=== PATIENT | female | born 1975 | race African-American/Black ===

== ENCOUNTER 2023-05-06 11:57 | Emergency (ER) | payer MEDICAID ==
[~2023-05-06] VITALS: Ht 152.4 cm; Wt 66.7 kg
[2023-05-06 11:57] VITALS: BP_SYST 129; PULSE 89; RESP 18; TEMP 97.5; O2SAT 97
[2023-05-06 15:09] LABS: BASOPHILS % (AUTO) 0.3 % (0.0-2.0); EOSINOPHILS # (AUTO) 0.1 K/uL (0.0-0.4); HEMATOCRIT 36.5 % (36-48); HEMOGLOBIN 11.7 g/dL (12.0-16.0); LYMPHOCYTES % (AUTO) 38.8 % (20.5-51.5); MEAN CORPUSCULAR HEMOGLOBIN 29 pg (27-31); MEAN CORPUSCULAR HGB CONC 32 % (32-36); MEAN CORPUSCULAR VOLUME 89 fL (79.0-98.0); MONOCYTES # (AUTO) 0.4 K/uL (0.0-1.0); MONOCYTES % (AUTO) 5.8 % (1.7-9.3); NEUTROPHILS # (AUTO) 4.2 K/uL (1.8-7.7); NEUTROPHILS % (AUTO) 54.1 % (40.0-70.0); PLATELET COUNT (AUTO) 314 K/uL (130-430); RED BLOOD CELL COUNT(AUTO) 4.12 MIL/uL (4.2-6.2); RED CELL DISTRIBUTION WIDTH 13.6 % (9.0-15.0); WHITE BLOOD COUNT (AUTO) 7.7 K/uL (4.8-10.8)
[2023-05-06 15:37] VITALS: TEMP 97.5
[2023-05-06 16:08] LABS: ALANINE AMINOTRANSFERASE 23 U/L (12-78); ALBUMIN 3.9 g/dL (3.4-4.8); ANION GAP 7 (5-15); ASPARTATE AMINOTRANSFERASE 20 U/L (10-37); CALCIUM 9.5 mg/dL (8.4-11.0); CARBON DIOXIDE 30 mmol/L (23-29); CHLORIDE 103 mmol/L (98-107); CREATININE 0.86 mg/dL (0.55-1.30); GFR AFRICAN AMERICAN 90 mL/min (>90); GLUCOSE 96 mg/dL (74-106); POTASSIUM 3.5 mmol/L (3.5-5.1); SODIUM SERUM 140 mmol/L (136-145); TOTAL BILIRUBIN 0.4 mg/dL (0.0-1.0); TOTAL PROTEIN, SERUM 7.6 g/dL (6.4-8.3); UREA NITROGEN, BLOOD 17 mg/dL (8-21)
[2023-05-06 16:11] LABS: GFR NON AFRICAN-AMERICAN 74 mL/min (>90)
[2023-05-06] MEDS ORDERED: IBUP-1969 PO (16:47)
[2023-05-06] MEDS ORDERED: TRAM50TA2 PO (16:47)
[2023-05-06 16:58] VITALS: BP_SYST 124; PULSE 81; RESP 16; O2SAT 99
== END 2023-05-06 16:59 | disposition home or self-care (01) ==
LOC: SED 11:57
DX: R20.2 Paresthesia of skin (principal); Z79.899 Other long term (current) drug therapy
CPT/HCPCS: 36415; 70450-TC; 76376; 80053; 84484; 85025; 99284

== ENCOUNTER 2023-05-11 10:36 | Emergency (ER) | payer OTHER, MEDICAID ==
[~2023-05-11] VITALS: Ht 162.6 cm; Wt 65.8 kg
[~2023-05-11 10:36] MED LIST: IBUP-1969 PO; TRAM50TA2 PO
[2023-05-11] MEDS ORDERED: NABU-140 PO (11:32)
[2023-05-11 12:03] VITALS: BP_SYST 124; PULSE 78; RESP 17; TEMP 98.1; O2SAT 99
[2023-05-11 12:06] VITALS: BP_SYST 124; PULSE 78; RESP 17; TEMP 98.1; O2SAT 99
== END 2023-05-11 12:02 | disposition home or self-care (01) ==
LOC: SED 10:36
DX: M79.601 Pain in right arm (principal); Z79.899 Other long term (current) drug therapy
CPT/HCPCS: 99283

== ENCOUNTER 2023-11-16 07:53 | Emergency (ER) | payer OTHER, MEDICAID ==
[~2023-11-16] VITALS: Ht 152.4 cm; Wt 69.9 kg
[~2023-11-16 07:53] MED LIST changes: +NABU-140 PO
[2023-11-16 07:58] VITALS: BP_SYST 124; PULSE 84; RESP 16; TEMP 97.1; O2SAT 99
[2023-11-16] MEDS: HYDROcodone/ACETAMIN 5-325 MG TAB (NORCO/ VICODIN) PO ONE (08:46)
[2023-11-16] MEDS ORDERED: METH-776 PO (09:39)
[2023-11-16] MEDS ORDERED: HYDR-3917 PO (09:39)
[2023-11-16 10:03] VITALS: BP_SYST 124; PULSE 84; RESP 16; TEMP 97.1; O2SAT 99
== END 2023-11-16 10:04 | disposition home or self-care (01) ==
LOC: SED 07:53
DX: M54.11 Radiculopathy, occipito-atlanto-axial region (principal); F32.A Depression, unspecified; M79.7 Fibromyalgia; Z79.899 Other long term (current) drug therapy
CPT/HCPCS: 99283